=== PATIENT | male | born 1980 | race Caucasian/White ===

== ENCOUNTER → 2019-10-03 | Outpatient (CLI) | payer SELFPAY ==
[~2019-10-03] MED LIST: ALBIPROI INH; DOXY100 PO; HYDACE5 PO; IBUP800 PO; OXYACE5T PO; PROM25 PO; RXOXYACE PO
== END | disposition home or self-care (01) ==
LOC: LAB EV 18:40 → LAB SHORT 18:40
DX: R30.9 Painful micturition, unspecified (principal)
CPT/HCPCS: 87086